=== PATIENT | male | born 1970 | race Caucasian/White ===

== ENCOUNTER 2019-01-26 15:25 | Observation (INO) | payer OTHER, SELFPAY ==
[2019-01-26] VITALS (10 sets, daily range): BP systolic 124–137; BP diastolic 69–82; PULSE 61–108; RESP 16–20; TEMP 36.9–37.3; O2SAT 95–98; BMI 39.9; BMI 38.5
--- NOTE | 2019-01-26 15:28 | EKG12_ITS ---
Test Reason : CP Blood Pressure : / mmHG Vent. Rate : 096 BPM Atrial Rate : 096 BPM P-R Int : 152 ms QRS Dur : 154 ms QT Int : 414 ms P-R-T Axes : 058 220 022 degrees QTc Int : 523 ms Normal sinus rhythm Right bundle branch block Abnormal ECG Confirmed by SAVAGE SORIANO ([id number]), film or videotape editor RICKEY CUMMINGS ([id number]) on 01/28/2019 1:49:14 PM Referred By: CARLTON Confirmed By:SAVAGE SORIANO
--- NOTE | 2019-01-26 15:31 | NURSING ---
NO OLD EKGS
[2019-01-26] MEDS: 0.9% Normal Saline 1,000 ML 150 ML IV (15:32)
[2019-01-26 15:36] LABS: Bedside Glucose 113 mg/dL (70-110)
--- NOTE | 2019-01-26 15:38 | ED.VISSUMM ---
- ER Visit Summary Date of Service: 01/26/19 Chief Complaint: Chest pain, near syncope History of Present Illness: The patient is a 48 M presents to the emergency department with near syncope and chest pain. The patient states over the past 2 or 3 days, he states he just not been feeling himself. He states he is been remaining lightheaded and stressed. He states that today, he was at the grocery store. He states he became acutely diaphoretic, felt like he was going to pass out, and began to have chest pain. His is going to bring him to the hospital, but his symptoms got worse. They went to the fire station. Patient was placed on a monitor. Prehospital EKG was obtained. Patient was given 1 nitro and he was totally pain-free. He states he is never had symptoms like this before. He denies any exertional pain. He denies any fevers or chills. He states he is been under a lot of stress at work recently, but has no history of cardiovascular disease. He is adopted and does not know his family history. He does use chewing tobacco, but does not smoke. Physical Examination: Vital signs reviewed General: Well-nourished, well-developed Head: Normocephalic, atraumatic Eyes: Pupils equal and reactive, extraocular muscles intact Neck, supple, no lymphadenopathy Heart: Regular rate and rhythm Respiratory: No distress, clear bilaterally Abdomen: Soft, nontender, nondistended, no peritoneal signs Back: Nontender Extremities: Nontender, no edema, no cords Skin: Normal color no rash Neuro: Alert and oriented, no focal or lateralizing deficits Test Results: [] Emergency Department Course and Treatment: The patient presents with near syncope and chest pain. EKG was obtained on arrival. He has a right bundle branch block, but was concerned especially in leads V2 and V3. He did not have discordant elevation, but based on his voltage I do not expect to see the depression. His pain was relieved with nitro and Nitropaste was applied. I repeated his EKG and there was no progression. I did actually discussed the patient with Dr. Moser on arrival. He did review the EKG and agreed with the plan. Patient's cardiac enzymes are normal. His pain is controlled. At this time, he will be admitted for cardiac evaluation. Patient is comfortable with this plan of care. Treatment Plan: [] Disposition: Admission Impression: 1. Chest pain with EKG changes This note was generated with [employer] dictation software. It may contain incorrect words, spelling, and punctuation that were not noted in review of the chart prior to signing ED Disposition - Plan for ED Patient: Referrals: Al Wu DO [NON CLINICAL AFFILIATE] -
[2019-01-26] MEDS: Ondansetron 4 MG/2 ML Vial IV (15:39)
[2019-01-26] MEDS: Nitroglycerin SL (ED/IMG/CATH) 0.4 MG TABLET SUBLINGUAL (15:40)
--- NOTE | 2019-01-26 15:40 | RAD_ITS ---
STUDY: X-RAY CHEST REASON FOR EXAM: Male, 48 years old. Discomfort. TECHNIQUE: Single frontal view of the chest. COMPARISON: None. FINDINGS: The lungs are clear and expanded. There is no demonstrated pleural abnormality. Normal size heart. Normal mediastinum and kim. Normal visualized pulmonary arteries. Normal visualized aortic arch and descending thoracic aorta. Normal visualized thoracic spine. Normal visualized ribs, clavicles, and shoulders. There is no demonstrated abnormality of the visualized soft tissue structures of the upper abdomen. RAD/Chest 1 View (Portable) IMPRESSION: No acute cardiopulmonary process. Electronically Signed: Carie Godwin MD at 16:08 EDT Tel , Service support ,
[2019-01-26 15:48] LABS: Absolute Lymphocyte Count 1.43 X10^3/ul (0.83-4.51); Basophil# 0.02 X10^3/uL; Basophil% 0.3 % (0-1); Eosinophils% 1.6 % (0-5); Hematocrit 42.5 % (40-54); Hemoglobin 14.8 g/dl (13.0-16.5); Lymphocyte # 1.43 X10^3/ul (4.0); Lymphocyte % 23.4 % (19-41); Mean Corp Hgb Conc 34.8 g/gl (32-36); Mean Corpuscular Hgb 31.2 pg (27.0-32.0); Mean Corpuscular Volume 89.5 fL (80-94); Mean Platelet Vol. 10.5 fl (6.2-12.0); Monocyte# 0.53 X10^3/uL; Monocyte% 8.7 % (0-10); Neutrophil # 4.03 X10^3/uL (2.7-7.7); Platelet Count 145 K/mm3 (150-450); RBC Distribution Width CV 12.5 % (11.6-14.6); RBC Distribution Width SD 40.3 fl (35.1-43.9); Red Blood Count 4.75 M/mm3 (4.6-6.2); White Blood Count 6.1 K/mm3 (4.4-11.0)
[2019-01-26] MEDS: Nitroglycerin Oint 1 INCH PACKET TRANSDERM. (15:51)
[2019-01-26 15:52] LABS: POSITIVE COUNT NO; POSITIVE DIFFERENTIAL NO; POSITIVE MORPHOLOGY NO
--- NOTE | 2019-01-26 15:58 | EKG12_ITS ---
Test Reason : CP Blood Pressure : / mmHG Vent. Rate : 086 BPM Atrial Rate : 086 BPM P-R Int : 152 ms QRS Dur : 154 ms QT Int : 426 ms P-R-T Axes : 048 238 015 degrees QTc Int : 509 ms Normal sinus rhythm Right bundle branch block Abnormal ECG Confirmed by SAVAGE SORIANO ([id number]), newspaper editor RICKEY CUMMINGS ([id number]) on 01/28/2019 1:49:48 PM Referred By: CARLTON Confirmed By:SAVAGE SORIANO
[2019-01-26 16:43] LABS: Anion Gap 8 (5-15); BUN 18 mg/dL (7-18); BUN/Creat Ratio 12.8 RATIO (10-20); Calcium,Total 8.4 mg/dL (8.5-10.1); Chloride 107 mmol/L (98-107); Creatinine, Serum 1.41 mg/dL (0.70-1.30); EST Glomerular Filtration Rate 57 mL/min (>60); Est Glom Filt Rate - Afr Amer 69 mL/min (>60); Estimated Creatinine Clearance 69.56 ml/min; Glucose 108 mg/dL (74-106); Magnesium 1.9 mg/dL (1.6-2.6); Potassium 4.4 mmol/L (3.5-5.1); Sodium Level 139 mmol/L (136-145)
--- NOTE | 2019-01-26 16:50 | NURSING ---
MARIEU OBS IVANA RIVERA
--- NOTE | 2019-01-26 17:00 | PCM.HP.STD ---
Problem List (1) Chest pain Status: Acute History of Present Illness Date of Admission: 01/26/19 Chief Complaint: Chest pain. The patient is a 48 year old M who presents emergency room due to chest pain. He reports he has had intermittent chest discomfort for the past 2 weeks, not associated with exertion. He describes a pressure sensation, sometimes radiating to back. Denies radiation to arm or jaw. Complains of intermittent fever. Denies recent illness. He reports chest discomfort feels worse with leaning forward. He denies shortness of breath, palpitations. He states overall he has not felt well for the last 2 weeks. His drove him to the hospital and patient reports he had her chain puller on the way here because he thought it was the end. He states he felt like his heart stopped working. He denies any prior cardiac history. He denies any prior stress test. He does not take any daily medications. He reports significant work stress recently and feels his increased stress may be contributing to his presenting symptoms. Past Medical History Allergies No Known Allergies Allergy (Verified 01/26/19 15:30) Home Medications: Ambulatory Orders Medication Instructions Recorded NK 01/26/19 Surgical History: - - Left hip replacement, vasectomy, right knee , gum graft Psychiatric History: No pertinent psych hx Lives: Spouse/ Significant Other Smoking Status: Never smoker Tobacco Use: Chew Alcohol: Occasional Drugs: None - *Family History Maternal History Items: - - Adopted, does not know maternal medical history. Paternal History Items: - - Adopted, does not known paternal medical history. Review of Systems Constitutional: Reports: Fever. Denies: Chills, Weight Change HEENT: Denies: Head Aches, Sinus Congestion, Sinus Drainage Cardiovascular: Reports: Chest Pain, Light Headedness. Denies: Palpitations, Syncope Respiratory: Denies: Cough, Shortness of breath at rest, Sputum production Gastrointestinal: Denies: Abdominal Pain, Nausea, Vomiting Genitourinary: Denies: Dysuria Musculoskeletal: Denies: Joint Pain, Joint Tenderness Skin: Denies: Rash, Wounds Neurological: Denies: Numbness, Tingling, Focal weakness Psychiatric: Denies: Anxiety, Depression, Homicidal Ideations, Suicidal Ideations Hematologic/ Lymphatic: Denies: Easy Bruising, Easy Bleeding VTE Information - Inpt Only VTE Present on Admission: No VTE Mechan Device Prophylaxis: None VTE Pharm Prophylaxis ordered?: Yes Patient Problems: Active and Suspected Problems Chest pain (Acute) - Physical Exam General: Alert, Oriented x3, Cooperative HEENT: Atraumatic, PERRLA, EOMI, Normocephalic Neck: Supple, No JVD, Negative Carotid Bruits Lungs: Clear to auscultation, Normal air movement Cardiovascular: Regular Rhythm, Normal S1, Normal S2, No murmurs, Tachycardic Abdomen: Bowel Sounds Present, Soft, Non Tender, Non-Distended Extremities: No clubbing, No cyanosis, No edema, Capillary Refill Less than 3 Seconds Skin: No rashes, No breakdown Musculoskeletal: No Tenderness to Palpation of Joints or Extremities Neurological: Cranial nerves II-XII grossly intact, Neuro grossly intact Psych/Mental Status: Normal Affect, Appropriate Vital Signs Temp Pulse Resp BP Pulse Ox 99.2 F H 108 H 20 H 129/80 H 95 01/26/19 15:26 01/26/19 15:51 01/26/19 15:26 01/26/19 15:51 01/26/19 15:31 Oxygen Delivery Method Room Air Weight: 294 lb 5.074 oz Body Mass Index (BMI) 39.9 Finger Stick Blood Glucose 113 Laboratory Tests Past 24 Hrs 01/26/19 01/26/19 15:35 15:35 WBC 6.1 RBC 4.75 Hgb 14.8 Hct 42.5 MCV 89.5 MCH 31.2 MCHC 34.8 RDW 12.5 RDW Differential 40.3 Plt Count 145 L MPV 10.5 Immature Gran % (Auto) 0.000 Neut % (Auto) 66.0 Lymph % (Auto) 23.4 [place] % (Auto) 8.7 Eos % (Auto) 1.6 Baso % (Auto) 0.3 Absolute Neuts (auto) 4.0 Absolute Lymphs (auto) 1.43 Total Counted Not Reportable Sodium 139 Potassium 4.4 Chloride 107 Carbon Dioxide 24.0 Anion Gap 8 BUN 18 Creatinine 1.41 H Estim Creat Clear Calc 69.56 Est GFR (MDRD) Af Amer 69 Est GFR (MDRD) Non-Af 57 L BUN/Creatinine Ratio 12.8 Glucose 108 H Calcium 8.4 L Magnesium 1.9 Troponin I < 0.015 POC Glucose 01/26/19 15:30 POC Glucose 113 H Assessment/Plan All Active Problems Chest pain (Acute) 1. Chest pain, RBBB-no prior EKG for comparison. No ST-T changes. Chest x-ray without acute process. Troponin negative x1. Trend enzymes. Repeat EKG in a.m. Plan for stress echo on Monday. Check ESR. 2. Elevated creatinine-unknown baseline. Repeat in a.m. 3. Lumbar spine osteoarthritis- PRN tylenol regimen. 4. Chewing tobacco use- advised cessation. DVT prophylaxis-Lovenox subcu This patient was seen by GEOVANY Guy under the supervision of Dr. Gonsales.
--- NOTE | 2019-01-26 17:52 | STEWCON_ITS ---
Reason For Study: Chest Pain Stress Results Protocol: Allan Protocol Maximum Predicted HR: 171 bpm Target HR: 145 bpm % Maximum Predicted HR: 95 % Heart Stage Duration Rate BP Comment (mm:ss) (bpm) 10 Lower Chest Tightness; 3 ML Diluted Definity Baseline 54 118/82Given Allan Protocol Stage I 3:00 95 124/701/10 Lower Chest Tightness Allan Protocol Stage II 3:00 121 140/721/10 Lower Chest Tightness Allan Protocol Stage III 3:00 151 154/721/10 Lower Chest Tightness; Mild Dyspnea Allan Protocol Stage IV 0:32 162 / 1/10 Lower Chest Tightness; Moderate Dyspnea Recovery 90 112/801/10 Lower Chest Tightness Stress Duration: 9:32 mm:ss Maximum Stress HR: 162 bpm METS: 11 Baseline Echocardiogram Findings The estimated ejection fraction is 65 %. Stress Echo Wall motion Data Resting WM Intermediate WM Stress WM Resting Wall Motion Wall Motion Stress No regional wall motion No regional wall motion abnormalities noted. abnormalities noted. EKG Data The baseline ECG displays normal sinus rhythm. The patient exercised according to the regular Allan protocol for a total duration of 9:32. The maximum heart rate attained was 171 beats per minute. This was 100% of maximum predicted heart rate. The patient exercised into stage 4 of the Allan protocol. During stress, there were no ST or T wave changes noted to suggest ischemia. No clinical angina was noted. No arrhythmias noted. Interpretation Summary The estimated ejection fraction is 65 %. Normal, adequate, treadmill echocardiogram. Negative for ischemia by EKG and echocardiographic criteria. No anginal symptoms noted. No arrhythmias noted. Appropriate blood pressure response to exercise. Average exercise capacity for age. Final LVEF is 75%. Test terminated due to fatigue. Decreased sensitivity due to poor echo windows requiring Definity enhancement agent. No complications. The study was technically difficult. Contrast injection was performed. Ordering Physician: Nirav Gonsales Referring Physician: Tarik Moser Performed By: Nayeli Gallagher RDCS, RVT
[2019-01-26 18:06] LABS: Erythrocyte Sedimentation Rate 3 mm/hr (0-15)
--- NOTE | 2019-01-26 23:57 | EKG12_ITS ---
Test Reason : AM EKG Blood Pressure : / mmHG Vent. Rate : 046 BPM Atrial Rate : 046 BPM P-R Int : 168 ms QRS Dur : 162 ms QT Int : 500 ms P-R-T Axes : 065 -28 033 degrees QTc Int : 437 ms Sinus bradycardia Right bundle branch block Abnormal ECG Confirmed by IVETTE GAVIN, GURDEEP ([id number]), photographic editor RICKEY CUMMINGS ([id number]) on 01/30/2019 1:56:05 PM Referred By: SUZY Confirmed By:GURDEEP STEELE MD
[2019-01-27] VITALS (10 sets, daily range): BP systolic 113–125; BP diastolic 57–76; PULSE 50–67; RESP 16–18; TEMP 36.4–36.6; O2SAT 96–97
[2019-01-27 05:54] LABS: Hematocrit 40.6 % (40-54); Hemoglobin 14.1 g/dl (13.0-16.5); Mean Corp Hgb Conc 34.7 g/gl (32-36); Mean Corpuscular Hgb 30.9 pg (27.0-32.0); Mean Corpuscular Volume 88.8 fL (80-94); Mean Platelet Vol. 11.3 fl (6.2-12.0); Platelet Count 154 K/mm3 (150-450); RBC Distribution Width CV 12.3 % (11.6-14.6); RBC Distribution Width SD 39.7 fl (35.1-43.9); Red Blood Count 4.57 M/mm3 (4.6-6.2); White Blood Count 5.3 K/mm3 (4.4-11.0)
[2019-01-27 05:58] LABS: Scan Indicated on CBC? Y/N NO
[2019-01-27 06:02] LABS: Cholesterol 173 mg/dL (200); High Density Lipoprotein 38 mg/dL; Triglycerides 123 mg/dL; Very Low Density Lipoprotein 25 mg/dL (5-40)
[2019-01-27 07:35] LABS: Anion Gap 7 (5-15); BUN 16 mg/dL (7-18); Calcium,Total 8.2 mg/dL (8.5-10.1); Chloride 109 mmol/L (98-107); Creatinine, Serum 1.33 mg/dL (0.70-1.30); EST Glomerular Filtration Rate 61 mL/min (>60); Est Glom Filt Rate - Afr Amer 73 mL/min (>60); Estimated Creatinine Clearance 73.74 ml/min; Glucose 92 mg/dL (74-106); Sodium Level 141 mmol/L (136-145)
--- NOTE | 2019-01-27 08:18 | EKG12_ITS ---
Test Reason : CP Blood Pressure : / mmHG Vent. Rate : 050 BPM Atrial Rate : 050 BPM P-R Int : 162 ms QRS Dur : 158 ms QT Int : 470 ms P-R-T Axes : 060 -28 019 degrees QTc Int : 428 ms Sinus bradycardia Right bundle branch block Abnormal ECG Confirmed by IVETTE GAVIN, GURDEEP ([id number]), desk editor RICKEY CUMMINGS ([id number]) on 01/30/2019 1:58:14 PM Referred By: CHRISTIE Confirmed By:GURDEEP STEELE MD
--- NOTE | 2019-01-27 10:40 | PN_ITS ---
<Savannah Richardson - Last Filed: 01/27/19 10:40> Patient Problems: Active and Suspected Problems Chest pain (Acute) Subjective: Patient seen and examined. Denies further chest pain overnight. No current complaints, concerns. - Physical Exam General: Alert, Oriented x3, Cooperative HEENT: Atraumatic, PERRLA, EOMI, Normocephalic Neck: Supple, No JVD, Negative Carotid Bruits Lungs: Clear to auscultation, Normal air movement Cardiovascular: Regular rate, Regular Rhythm, Normal S1, Normal S2, No murmurs Abdomen: Bowel Sounds Present, Soft, Non Tender, Non-Distended Extremities: No clubbing, No cyanosis, No edema, Capillary Refill Less than 3 Seconds Skin: No rashes, No breakdown Musculoskeletal: No Tenderness to Palpation of Joints or Extremities Neurological: Cranial nerves II-XII grossly intact, Neuro grossly intact Psych/Mental Status: Normal Affect, Appropriate Vital Signs Temp Pulse Resp BP Pulse Ox 97.8 F 60 17 121/76 H 97 01/27/19 09:43 01/27/19 09:43 01/27/19 09:43 01/27/19 09:43 01/27/19 09:43 Oxygen Flow Rate (L/min) 2 Oxygen Delivery Method Room Air Weight: 283 lb 11.759 oz Body Mass Index (BMI) 38.5 Finger Stick Blood Glucose 113 Intake and Output for Last 24 Hours 01/25/19 01/26/19 01/27/19 23:59 23:59 23:59 Intake Total 480 / 480 360 / 360 Balance 480 / 480 360 / 360 Laboratory Tests Past 24 Hrs 01/26/19 01/26/19 01/26/19 15:35 15:35 15:35 WBC 6.1 RBC 4.75 Hgb 14.8 Hct 42.5 MCV 89.5 MCH 31.2 MCHC 34.8 RDW 12.5 RDW Differential 40.3 Plt Count 145 L MPV 10.5 Immature Gran % (Auto) 0.000 Neut % (Auto) 66.0 Lymph % (Auto) 23.4 [place] % (Auto) 8.7 Eos % (Auto) 1.6 Baso % (Auto) 0.3 Absolute Neuts (auto) 4.0 Absolute Lymphs (auto) 1.43 Total Counted Not Reportable ESR 3 Sodium 139 Potassium 4.4 Chloride 107 Carbon Dioxide 24.0 Anion Gap 8 BUN 18 Creatinine 1.41 H Estim Creat Clear Calc 69.56 Est GFR (MDRD) Af Amer 69 Est GFR (MDRD) Non-Af 57 L BUN/Creatinine Ratio 12.8 Glucose 108 H Calcium 8.4 L Magnesium 1.9 Troponin I < 0.015 Triglycerides Cholesterol LDL Cholesterol VLDL Cholesterol HDL Cholesterol 01/26/19 01/26/19 01/26/19 18:30 18:35 22:30 WBC RBC Hgb Hct MCV MCH MCHC RDW RDW Differential Plt Count MPV Immature Gran % (Auto) Neut % (Auto) Lymph % (Auto) [place] % (Auto) Eos % (Auto) Baso % (Auto) Absolute Neuts (auto) Absolute Lymphs (auto) Total Counted ESR Sodium Potassium Chloride Carbon Dioxide Anion Gap BUN Creatinine Estim Creat Clear Calc Est GFR (MDRD) Af Amer Est GFR (MDRD) Non-Af BUN/Creatinine Ratio Glucose Calcium Magnesium Troponin I < 0.015 < 0.015 < 0.015 Triglycerides Cholesterol LDL Cholesterol VLDL Cholesterol HDL Cholesterol 01/27/19 01/27/19 01/27/19 05:04 05:04 05:04 WBC 5.3 RBC 4.57 L Hgb 14.1 Hct 40.6 MCV 88.8 MCH 30.9 MCHC 34.7 RDW 12.3 RDW Differential 39.7 Plt Count 154 MPV 11.3 Immature Gran % (Auto) Neut % (Auto) Lymph % (Auto) [place] % (Auto) Eos % (Auto) Baso % (Auto) Absolute Neuts (auto) Absolute Lymphs (auto) Total Counted ESR Sodium 141 Potassium 4.0 Chloride 109 H Carbon Dioxide 25.0 Anion Gap 7 BUN 16 Creatinine 1.33 H Estim Creat Clear Calc 73.74 Est GFR (MDRD) Af Amer 73 Est GFR (MDRD) Non-Af 61 BUN/Creatinine Ratio 12.0 Glucose 92 Calcium 8.2 L Magnesium Troponin I Triglycerides 123 Cholesterol 173 LDL Cholesterol 110 VLDL Cholesterol 25 HDL Cholesterol 38 L POC Glucose 01/26/19 15:30 POC Glucose 113 H Medical Necessity - Tobacco Use Smoking Status: Never smoker Tobacco Use: Chew Assessment/Plan All Active Problems Chest pain (Acute) 1. Chest pain, RBBB-no prior EKG for comparison. No ST-T changes. Chest x-ray without acute process. Troponin negative x3. ESR normal. Stress echo ordered for a.m. 2. Elevated creatinine-unknown baseline. Improved with IV fluids given in ER. Trend BMP. 3. Lumbar spine osteoarthritis- PRN tylenol regimen. 4. Chewing tobacco use- advised cessation. DVT prophylaxis-Lovenox subcu This patient was seen by GEOVANY Guy under the supervision of Dr. Gallo. <Chaim Gallo - Last Filed: 01/27/19 12:35> - Physical Exam Vital Signs Temp Pulse Resp BP Pulse Ox 97.8 F 64 17 121/76 H 97 01/27/19 09:43 01/27/19 11:53 01/27/19 09:43 01/27/19 09:43 01/27/19 09:43 Oxygen Flow Rate (L/min) 2 Oxygen Delivery Method Room Air Weight: 128.7 kg Body Mass Index (BMI) 38.5 Finger Stick Blood Glucose 113 Intake and Output for Last 24 Hours 01/25/19 01/26/19 01/27/19 23:59 23:59 23:59 Intake Total 480 / 480 1010 / 1010 Balance 480 / 480 1010 / 1010 Laboratory Tests Past 24 Hrs 01/26/19 01/26/19 01/26/19 15:35 15:35 15:35 WBC 6.1 RBC 4.75 Hgb 14.8 Hct 42.5 MCV 89.5 MCH 31.2 MCHC 34.8 RDW 12.5 RDW Differential 40.3 Plt Count 145 L MPV 10.5 Immature Gran % (Auto) 0.000 Neut % (Auto) 66.0 Lymph % (Auto) 23.4 [place] % (Auto) 8.7 Eos % (Auto) 1.6 Baso % (Auto) 0.3 Absolute Neuts (auto) 4.0 Absolute Lymphs (auto) 1.43 Total Counted Not Reportable ESR 3 Sodium 139 Potassium 4.4 Chloride 107 Carbon Dioxide 24.0 Anion Gap 8 BUN 18 Creatinine 1.41 H Estim Creat Clear Calc 69.56 Est GFR (MDRD) Af Amer 69 Est GFR (MDRD) Non-Af 57 L BUN/Creatinine Ratio 12.8 Glucose 108 H Calcium 8.4 L Magnesium 1.9 Troponin I < 0.015 Triglycerides Cholesterol LDL Cholesterol VLDL Cholesterol HDL Cholesterol 05/08/0601/26/19 01/26/19 18:30 18:35 22:30 WBC RBC Hgb Hct MCV MCH MCHC RDW RDW Differential Plt Count MPV Immature Gran % (Auto) Neut % (Auto) Lymph % (Auto) [place] % (Auto) Eos % (Auto) Baso % (Auto) Absolute Neuts (auto) Absolute Lymphs (auto) Total Counted ESR Sodium Potassium Chloride Carbon Dioxide Anion Gap BUN Creatinine Estim Creat Clear Calc Est GFR (MDRD) Af Amer Est GFR (MDRD) Non-Af BUN/Creatinine Ratio Glucose Calcium Magnesium Troponin I < 0.015 < 0.015 < 0.015 Triglycerides Cholesterol LDL Cholesterol VLDL Cholesterol HDL Cholesterol 01/27/19 01/27/19 01/27/19 05:04 05:04 05:04 WBC 5.3 RBC 4.57 L Hgb 14.1 Hct 40.6 MCV 88.8 MCH 30.9 MCHC 34.7 RDW 12.3 RDW Differential 39.7 Plt Count 154 MPV 11.3 Immature Gran % (Auto) Neut % (Auto) Lymph % (Auto) [place] % (Auto) Eos % (Auto) Baso % (Auto) Absolute Neuts (auto) Absolute Lymphs (auto) Total Counted ESR Sodium 141 Potassium 4.0 Chloride 109 H Carbon Dioxide 25.0 Anion Gap 7 BUN 16 Creatinine 1.33 H Estim Creat Clear Calc 73.74 Est GFR (MDRD) Af Amer 73 Est GFR (MDRD) Non-Af 61 BUN/Creatinine Ratio 12.0 Glucose 92 Calcium 8.2 L Magnesium Troponin I Triglycerides 123 Cholesterol 173 LDL Cholesterol 110 VLDL Cholesterol 25 HDL Cholesterol 38 L POC Glucose 01/26/19 15:30 POC Glucose 113 H Assessment/Plan This patient was seen in conjunction with GEOVANY Guy . I have independently interviewed and examined the patient and reviewed pertinent hist orical, laboratory, and other data. Please refer to GEOVANY Guy note for details of this patient's presentation, findings, and recommendations. I have reviewed GEOVANY Guy note and concur with documented findings. In brief, patient is a 48-year-old gentleman who presented with chest pain found to have right bundle branch block on EKG Physical Examination: GENERAL: cooperative HEENT: Atraumatic; EYES; Anicteric, NECK; supple, normal thyroid, . RESPIRATORY: Diminished to auscultation bilaterally, CARDIOVASCULAR: Regular S1 S2, GI: soft, non-tender, normoactive bowel sounds, SKIN: No Rash PSYCH; Normal affect Assessment: 1. Chest pain; stress in a.m. 2. Renal failure (acute versus chronic) baseline creatinine unknown we will continue to monitor lites 3. Obesity with BMI of 38.5 4. Dependence (chews tobacco) 5. Osteoarthritis involving the lumbar spine Recommendations: 1. I have discussed the results of my overview and impressions with the patient 2. Options for management were reviewed Code Visit OBSV E&M: 28305 Observ/hosp same date L3
--- NOTE | 2019-01-27 10:57 | PCM.CONS.C ---
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 The patient does chew tobacco. He has had no known cardiac or cerebrovascular issues. He has never had a stress test or a catheterization. Patient has been under a significant amount of stress at work and is noted new onset substernal chest pressure which is dull and constant which lasts several hours and has been going on for several days. This occurred approximately 1 week ago. Patient did not seek out medical attention. Patient was walking in the grocery store with his yesterday and he developed severe feeling of doom, substernal chest heaviness, as well as dyspnea and diaphoresis. Patient asked his to take him to the hospital, but prison there his symptoms worsened and was diverted to the local fire station. An EKG was performed but it had significant artifact and he was brought to [facility] ER. An EKG in the emergency room demonstrated normal sinus rhythm with right bundle branch block and anteroseptal ST segment depression out of proportion to normal right bundle branch block pattern. Patient was given a sublingual nitroglycerin in the squad as well as in the ER and his symptoms abated. He has had no symptoms overnight although he has constant dull chest heaviness still going on today. Overnight his troponins have been negative x3, and his telemetry showed normal sinus rhythm. On further history he denies any exertional chest pain symptoms and exercises regularly without any difficulty. He is noted no worsening exercise capacity although he has been under a lot of psychosocial stress at work. He denies any [id number], herbal, medications he has occasional alcohol use, and no illicit drug use. [] Past Medical History Allergies/Adverse Reactions: Allergies No Known Allergies Allergy (Verified 01/26/19 15:30) Home Medications: Ambulatory Orders Medication Instructions Recorded NK 01/26/19 Surgical History: - - Left hip replacement, vasectomy, right knee , gum graft Psychiatric History: No pertinent psych hx - *Family History Maternal History Items: - - Adopted, does not know maternal medical history. Paternal History Items: - - Adopted, does not known paternal medical history. Lives: Spouse/ Significant Other Smoking Status: Never smoker Tobacco Use: Chew Alcohol: Occasional Drugs: None Review of Systems - Review of Systems General: Denies: Fever, Night Sweats, Fatigue Cardiovascular: Reports: Chest Discomfort, Chest Discomfort at Rest, Chest Heaviness, Shortness of Breath. Denies: Orthopnea, PND, Peripheral Edema, Palpitations, Lightheadedness, Dizziness, Near Syncope, Syncope Respiratory: Denies: Cough, Sputum Production, Hemoptysis Gastrointestinal: Denies: Hematemesis, Hematochezia, Melena Genitourinary: Denies: Dysuria, Hematuria Skin: Denies: Rash Subjectve: Patient sitting in a chair, no acute distress. Objective: Vital Signs Temp Pulse Resp BP Pulse Ox 97.8 F 60 17 121/76 H 97 01/27/19 09:43 01/27/19 09:43 01/27/19 09:43 01/27/19 09:43 01/27/19 09:43 Oxygen Flow Rate (L/min) 2 Oxygen Delivery Method Room Air Weight: 283 lb 11.759 oz Body Mass Index (BMI) 38.5 Finger Stick Blood Glucose 113 Intake and Output for Last 24 Hours 01/25/19 01/26/19 01/27/19 23:59 23:59 23:59 Intake Total 480 / 480 360 / 360 Balance 480 / 480 360 / 360 General: Awake, Alert, Oriented x 3 HEENT: PERRL, EOMI, Sclera Non Icteric Neck: Supple, Good ROM, No Lymph Node Enlargement Lungs: Clear to auscultation Cardiovascular: Regular Rhythm, Normal S1, Normal S2, No Murmurs, No Rubs, No Gallops Vascular: No Carotid Bruits, Normal Femoral Pulses, Normal Radial Pulses, Normal Dorsalis Pedal Pulse, Normal Posterior Tibial Pulses Abdomen: Bowel Sounds Present, Soft, Non Tender, No HSM, No Organomegaly Extremities: No Cyanosis, No Clubbing, No edema Neurological: No Focal Motor or Sensory Deficit 01/26/19 15:35: WBC 6.1, RBC 4.75, Hgb 14.8, Hct 42.5, MCV 89.5, MCH 31.2, MCHC 34.8, RDW 12.5, RDW Differential 40.3, Plt Count 145 L, MPV 10.5, Immature Gran % (Auto) 0.000, Neut % (Auto) 66.0, Lymph % (Auto) 23.4, Hamilton % (Auto) 8.7, Eos % (Auto) 1.6, Baso % (Auto) 0.3, Absolute Neuts (auto) 4.0, Total Counted Not Reportable 01/26/19 15:35: Sodium 139, Potassium 4.4, Chloride 107, Carbon Dioxide 24.0, Anion Gap 8, BUN 18, Creatinine 1.41 H, Est GFR (MDRD) Af Amer 69, Est GFR (MDRD) Non-Af 57 L, BUN/Creatinine Ratio 12.8, Glucose 108 H, Calcium 8.4 L, Magnesium 1.9, Troponin I < 0.015 01/26/19 18:30: Troponin I < 0.015 01/26/19 18:35: Troponin I < 0.015 01/26/19 22:30: Troponin I < 0.015 01/27/19 05:04: Triglycerides 123, Cholesterol 173, LDL Cholesterol 110, VLDL Cholesterol 25, HDL Cholesterol 38 L 01/27/19 05:04: WBC 5.3, RBC 4.57 L, Hgb 14.1, Hct 40.6, MCV 88.8, MCH 30.9, MCHC 34.7, RDW 12.3, RDW Differential 39.7, Plt Count 154, MPV 11.3 01/27/19 05:04: Sodium 141, Potassium 4.0, Chloride 109 H, Carbon Dioxide 25.0, Anion Gap 7, BUN 16, Creatinine 1.33 H, Est GFR (MDRD) Af Amer 73, Est GFR (MDRD) Non-Af 61, BUN/Creatinine Ratio 12.0, Glucose 92, Calcium 8.2 L Rhythm: EKG: ECHO: Stress Test: Cardiac Cath: PCI: CT Surgery: Holter monitor: EPS: PPM: CXR: Chest CT Scan: Assessment/Plan 1. New onset chest pain: Patient has several risk factors for coronary occlusive disease including his age, borderline cholesterol, and obesity. We are at a disadvantage as he is adopted and has no knowledge of his family history of coronary disease. Patient's troponins are negative, and he comes with a baseline right bundle branch block which in and of itself does not suggest or confirm coronary occlusive disease but is somewhat concerning given his young age. I recommended the patient undergo a 2D echo with Doppler to define his LV function, pulmonary pressures and valvular status. Assuming this is normal, I would then recommend a treadmill echocardiogram to evaluate for possible coronary ischemia. If either 1 of these are grossly abnormal, the patient may require diagnostic coronary angiogram. In addition I would recommend baby aspirin 81 mg p.o. daily. Also recommend starting PPI therapy in the event that the patient may have gastritis or peptic ulcer disease that may be contributing to his overall symptom presentation. It is unlikely the patient may have a pulmonary embolism, given the fact that his symptoms have been going on for well over a week, he has no desaturation, no sinus tachycardia, and does not require supplemental oxygenation however it is still within the differential. 2. Hyperlipidemia: Given we have no idea of his family history of premature coronary disease I would recommend gentle LDL reduction by starting him on Zocor 20 mg p.o. nightly and repeating lipid profile in 6 weeks time. 3. Obesity: The patient has body habitus consistent with possibly undiagnosed obstructive sleep apnea which may be contributing to his overall fatigue and stress. He may require a an outpatient sleep study after his cardiac work-up is been completed. 4. Thank you very much for the opportunity to participate in the cardiac care of your patient. Consultation time took place between 9 AM and 9:30 AM. Code Visit Inpatient E&M: 11748 Init Hosp L2
--- NOTE | 2019-01-27 11:05 | ECHOCS_ITS ---
Reason For Study: Chest Pain Procedure This was a 2D Doppler, Color Flow transthoracic echocardiogram. The study was technically difficult. Contrast injection was performed. Exam performed in department. Left Ventricle Normal size and thickness. The estimated ejection fraction is 65 %. Normal diastology for age. No regional wall motion abnormalities noted. Right Ventricle Normal size and thickness. Normal systolic function. Atria Normal left atrium. Normal right atrium. Normal atrial septum. Mitral Valve The mitral valve is structurally normal. No prolapse or stenosis seen. Mild (1+) mitral valve insufficiency. Tricuspid Valve Normal tricuspid valve. Mild (1+) tricuspid valve insufficiency. Right ventricular systolic pressure estimated to be 35 mmHg. Aortic Valve Normal aortic valve. Trisinus/trileaflet aortic valve. Pulmonic Valve Normal pulmonic valve. Trivial pulmonic valve insufficiency. Great Vessels Normal aortic root. Normal arch. Normal inferior vena cava. Inferior vena cava collapse with sniff. Pericardium/Pleural No pericardial effusion. Medication [id number] given slow IV push to enhance endocardial definition. MMode/2D Measurements & Calculations LVIDd: 5.6 cm IVSd: 0.95 cm Ao root diam: 3.6 cm LVIDs: 3.5 cm LVPWd: 1.0 cm RVDd: 4.3 cm FS: 37.4 % LAV(MOD-bp): 43.8 ml LVAd ap4: 36.8 cm2 SV(MOD-sp4): 82.7 ml LAV(MOD-bp) Indexed: 17.7 ml/m2 EDV(MOD-sp4): 128.9 ml LAV(MOD-sp2): 39.6 ml EDV(sp4-el): 134.0 ml LAV(MOD-sp4): 45.4 ml LVAs ap4: 20.5 cm2 ESV(MOD-sp4): 46.2 ml ESV(sp4-el): 46.4 ml EF(MOD-sp4): 64.2 % EF(sp4-el): 65.4 % SV(sp4-el): 87.6 ml LA A4 area: 17.6 cm2 LA dimension(2D): 4.0 cm RA A4 area: 16.1 cm2 Doppler Measurements & Calculations MV E max jay jay: 74.7 cm/sec Lat Peak E' Jay Jay: 13.4 cm/sec Med Peak E' Jay Jay: 8.3 cm/sec MV A max jay jay: 56.2 cm/sec E/E' lat: 5.6 E/E' med: 9.0 MV E/A: 1.3 Ao V2 max: 140.2 cm/sec LV V1 max: 134.4 cm/sec PA V2 max: 97.3 cm/sec Ao max P.9 mmHg LV V1 max P.2 mmHg Ao V2 mean: 94.5 cm/sec Ao mean P.0 mmHg Ao V2 VTI: 31.8 cm TR max jay jay: 274.9 cm/sec TR max P.2 mmHg Interpretation Summary The estimated ejection fraction is 65 %. Normal diastology for age. Mild (1+) mitral valve insufficiency. Mild (1+) tricuspid valve insufficiency. Right ventricular systolic pressure estimated to be 35 mmHg. There is no comparison study available. The study was technically difficult. Contrast injection was performed. Ordering Physician: Tarik Moser Referring Physician: Jamie Jean Performed By: Nayeli Gallagher, SHAWN, RVT
[2019-01-27] MEDS: Enoxaparin 30 MG/0.3 ML Syringe SC (11:06)
[2019-01-28 01:22] VITALS: PULSE 39
[2019-01-28 03:00] VITALS: PULSE 52
[2019-01-28 04:16] VITALS: BP 112/79; PULSE 49; RESP 18; TEMP 36.6; O2SAT 95
[2019-01-28 05:25] VITALS: BP 115/79; PULSE 48; RESP 18; TEMP 36.6; O2SAT 94
[2019-01-28] MEDS: Aspirin 81 MG TAB.CHEW PO (05:27)
[2019-01-28] MEDS: 0.9% NaCl Peripheral Flush Adult/Peds IV (05:27)
[2019-01-28 05:28] LABS: Hematocrit 42.1 % (40-54); Hemoglobin 14.6 g/dl (13.0-16.5); Mean Corp Hgb Conc 34.7 g/gl (32-36); Mean Corpuscular Hgb 31.2 pg (27.0-32.0); Mean Platelet Vol. 11.1 fl (6.2-12.0); Platelet Count 139 K/mm3 (150-450); RBC Distribution Width CV 12.5 % (11.6-14.6); RBC Distribution Width SD 40.8 fl (35.1-43.9); Red Blood Count 4.68 M/mm3 (4.6-6.2); White Blood Count 3.8 K/mm3 (4.4-11.0)
[2019-01-28 05:34] LABS: Scan Indicated on CBC? Y/N NO
[2019-01-28 05:35] LABS: Partial Thromboplast Time 28.5 Seconds (24.1-36.2); Prothrombin Time (Protime)PT. 13.3 SECONDS (11.7-14.9)
[2019-01-28 05:46] LABS: Anion Gap 6 (5-15); BUN 14 mg/dL (7-18); BUN/Creat Ratio 11.6 RATIO (10-20); Calcium,Total 8.5 mg/dL (8.5-10.1); Chloride 109 mmol/L (98-107); Creatinine, Serum 1.21 mg/dL (0.70-1.30); EST Glomerular Filtration Rate 68 mL/min (>60); Est Glom Filt Rate - Afr Amer 82 mL/min (>60); Estimated Creatinine Clearance 81.06 ml/min; Glucose 96 mg/dL (74-106); Potassium 4.3 mmol/L (3.5-5.1); Sodium Level 143 mmol/L (136-145)
--- NOTE | 2019-01-28 05:55 | EKG12_ITS ---
Test Reason : CP ADMISSION Blood Pressure : / mmHG Vent. Rate : 061 BPM Atrial Rate : 061 BPM P-R Int : 156 ms QRS Dur : 154 ms QT Int : 456 ms P-R-T Axes : 057 -82 025 degrees QTc Int : 459 ms Normal sinus rhythm Right bundle branch block Left anterior fascicular block Bifascicular block Abnormal ECG Confirmed by IVETTE GAVIN, GURDEEP ([id number]), video effects editor RICKEY CUMMINGS ([id number]) on 01/30/2019 1:59:02 PM Referred By: NICOLE Confirmed By:GURDEEP STEELE MD
[2019-01-28 07:06] VITALS: PULSE 51
[2019-01-28 09:53] VITALS: BP 139/86; PULSE 75; RESP 17; TEMP 36.8; O2SAT 95
[2019-01-28] MEDS: Pantoprazole Sodium 20 MG Tablet PO (10:01)
[2019-01-28 10:16] LABS: D-Dimer Quantitative (DVT/PE) < 0.27 FEU/ug/m (0.27-0.49)
--- NOTE | 2019-01-28 10:30 | PCM.WORK.EX ---
Work/School Excuse Work/School Excuse for:: Patient Please excuse this person from:: Work From: 01/26/19 through: 02/04/19
--- NOTE | 2019-01-28 10:30 | PCM.DC ---
- Discharge Diagnoses Current Active Problems: Current Active and Chronic Problems Chest pain (Acute) You will use the following diet at home:: No restrictions Discharge Activity: Return to Normal Activity Call your doctor if you observe: Shortness of breath, Dizziness, Fainting spells, Chest pain Additional Instructions: Recommend sleep study as outpatient. Allergies/Adverse Reactions: Allergies No Known Allergies Allergy (Verified 01/26/19 15:30) Medications to take at Discharge Simvastatin [Zocor] 20 mg PO QHS #30 tablet 01/28/19 The following prescriptions were given: Simvastatin [Zocor] 20 mg PO QHS #30 tablet Test Results: Test results from this visit will be discussed in further detail at your follow-up appointment, if applicable. Please Follow Up With: Bismark Jean MD When: Within 1 week, may see INTERPRETER/PA Proposed Discharge Date: 01/28/19
--- NOTE | 2019-01-28 10:33 | DCINST_ITS ---
- Discharge Diagnoses Current Active Problems: Current Active and Chronic Problems Chest pain (Acute) You will use the following diet at home:: No restrictions Discharge Activity: Return to Normal Activity Call your doctor if you observe: Shortness of breath, Dizziness, Fainting spells, Chest pain Additional Instructions: Recommend sleep study as outpatient. Allergies/Adverse Reactions: Allergies No Known Allergies Allergy (Verified 01/26/19 15:30) Medications to take at Discharge Simvastatin [Zocor] 20 mg PO QHS #30 tablet 01/28/19 The following prescriptions were given: Simvastatin [Zocor] 20 mg PO QHS #30 tablet Test Results: Test results from this visit will be discussed in further detail at your follow- up appointment, if applicable. Please Follow Up With: Bismark Jean MD When: Within 1 week, may see PRINTED CIRCUIT BOARDS PINNER/PA Proposed Discharge Date: 01/28/19
--- NOTE | 2019-01-28 10:47 | DS.PCM_ITS ---
<Savannah Richardson - Last Filed: 01/28/19 10:48> Discharge Date and Diagnosis Date of Admission: 01/26/19 Date of Discharge: 01/28/19 - Primary Discharge Diagnosis Active and Suspected Problems 1. Chest pain- ACS ruled out. Suspected anxiety/stress related. 2. Right Bundle Branch Block 3. Elevated creatinine, no KATE 4. Lumbar spine osteoarthritis 5. Chewing tobacco use 6. Hyperlipidemia Hospital Course and Treatment Imaging Results: Diagnostic Data Chest X-Ray 01/26/19 15:40 IMPRESSION: No acute cardiopulmonary process. Electronically Signed: Carie Godwin MD at 16:08 EDT Tel , Service support , Dr. Moser- Cardiology Operations: None Procedures: 2-D Echocardiogram, Stress test Summary of Care Provided: The patient is a 48 year old M admitted 01/26/2019 due to chest pain. 1. Chest pain, RBBB-no prior EKG for comparison. No ST-T changes. Chest x-ray without acute process. Troponin negative x3. ESR normal. D-dimer negative. Echocardiogram with EF 65%, mild mitral valve insufficiency, mild tricuspid valve insufficiency, RVSP estimated to be 35 mmHg. Stress echo completed and showed no evidence of ischemia. ACS ruled out. Suspect symptoms are related to anxiety/stress as he reports he has had significant work stress recently. He requests to be written off of work the rest of the week. Follow up with PCP within 1 Week. Recommend sleep study as outpatient to evaluate for PATSY. 2. Elevated creatinine-unknown baseline. Suspect secondary to dehydration. Resolved with IV fluids. 3. Lumbar spine osteoarthritis 4. Chewing tobacco use- advised cessation. 5. Hyperlipidemia-mildly elevated LDL. Cardiology recommending initiating statin, Zocor 20 mg p.o. nightly and repeating lipid panel in 6 weeks. General: Alert, Oriented x3, Cooperative HEENT: Atraumatic, PERRLA, EOMI, Normocephalic Neck: Supple, No JVD, Negative Carotid Bruits Lungs: Clear to auscultation, Normal air movement Cardiovascular: Regular rate, Regular Rhythm, Normal S1, Normal S2, No murmurs Abdomen: Bowel Sounds Present, Soft, Non Tender, Non-Distended Extremities: No clubbing, No cyanosis, No edema, Capillary Refill Less than 3 Seconds Skin: No rashes, No breakdown Musculoskeletal: No Tenderness to Palpation of Joints or Extremities Neurological: Cranial nerves II-XII grossly intact, Neuro grossly intact Psych/Mental Status: Normal Affect, Appropriate Patient seen and examined prior to discharge. Physical assessment as noted above. Patient is stable for discharge with follow up recommendations as noted above. This patient was seen by [facility] under the supervision of Dr. Judge. - Physical Exam Vital Signs Temp Pulse Resp BP Pulse Ox 98.2 F 75 17 139/86 H 95 01/28/19 09:53 01/28/19 09:53 01/28/19 09:53 01/28/19 09:53 01/28/19 09:53 Oxygen Flow Rate (L/min) 2 Oxygen Delivery Method Room Air Weight: 283 lb 11.759 oz Body Mass Index (BMI) 38.5 Finger Stick Blood Glucose 113 Intake and Output for Last 24 Hours 01/26/19 01/27/19 01/28/19 23:59 23:59 23:59 Intake Total 480 / 480 1760 / 1760 240 / 240 Balance 480 / 480 1760 / 1760 240 / 240 Laboratory Tests Past 24 Hrs 01/28/19 01/28/19 01/28/19 05:05 05:05 05:05 WBC 3.8 L RBC 4.68 Hgb 14.6 Hct 42.1 MCV 90.0 MCH 31.2 MCHC 34.7 RDW 12.5 RDW Differential 40.8 Plt Count 139 L MPV 11.1 PT 13.3 INR 1.0 APTT 28.5 D-Dimer Quant (PE/DVT) Sodium 143 Potassium 4.3 Chloride 109 H Carbon Dioxide 28.0 Anion Gap 6 BUN 14 Creatinine 1.21 Estim Creat Clear Calc 81.06 Est GFR (MDRD) Af Amer 82 Est GFR (MDRD) Non-Af 68 BUN/Creatinine Ratio 11.6 Glucose 96 Calcium 8.5 01/28/19 05:05 WBC RBC Hgb Hct MCV MCH MCHC RDW RDW Differential Plt Count MPV PT INR APTT D-Dimer Quant (PE/DVT) < 0.27 L Sodium Potassium Chloride Carbon Dioxide Anion Gap BUN Creatinine Estim Creat Clear Calc Est GFR (MDRD) Af Amer Est GFR (MDRD) Non-Af BUN/Creatinine Ratio Glucose Calcium Discharge Diet: Low fat/ Low Cholesterol, 1800 Calorie Control Diet Discharge Activity: Return to Normal Activity Call your doctor if you observe: Shortness of breath, Dizziness, Fainting spells, Chest pain Home Medications: Medications to take at Discharge Simvastatin [Zocor] 20 mg PO QHS #30 tablet 01/28/19 Following Prescrptions Were Given to Patient: Simvastatin [Zocor] 20 mg PO QHS #30 tablet Primary Care Physician: Bismark Jean MD [Primary Care Provider] - Please Follow Up With: Bismark Jean MD When: Within 1 week, may see VACUUM FILTER OPERATOR/PA Disposition: Home Minutes spent on discharge:: 35 Patient Condition:: Stable Medical Necessity - Tobacco Use Smoking Status: Never smoker Tobacco Use: Chew Meaningful Use Info Meaningful Use Diagnoses (Choose all that apply): None applicable <Vitor Judge - Last Filed: 01/28/19 14:17> Hospital Course and Treatment Summary of Care Provided: The patient is a 48 year old M [] - Physical Exam Vital Signs Temp Pulse Resp BP Pulse Ox 98.2 F 75 17 139/86 H 95 01/28/19 09:53 01/28/19 09:53 01/28/19 09:53 01/28/19 09:53 01/28/19 09:53 Oxygen Flow Rate (L/min) 2 Oxygen Delivery Method Room Air Weight: 283 lb 11.759 oz Body Mass Index (BMI) 38.5 Finger Stick Blood Glucose 113 Intake and Output for Last 24 Hours 01/26/19 01/27/19 01/28/19 23:59 23:59 23:59 Intake Total 480 / 480 1760 / 1760 240 / 240 Balance 480 / 480 1760 / 1760 240 / 240 Laboratory Tests Past 24 Hrs 01/28/19 01/28/19 01/28/19 05:05 05:05 05:05 WBC 3.8 L RBC 4.68 Hgb 14.6 Hct 42.1 MCV 90.0 MCH 31.2 MCHC 34.7 RDW 12.5 RDW Differential 40.8 Plt Count 139 L MPV 11.1 PT 13.3 INR 1.0 APTT 28.5 D-Dimer Quant (PE/DVT) Sodium 143 Potassium 4.3 Chloride 109 H Carbon Dioxide 28.0 Anion Gap 6 BUN 14 Creatinine 1.21 Estim Creat Clear Calc 81.06 Est GFR (MDRD) Af Amer 82 Est GFR (MDRD) Non-Af 68 BUN/Creatinine Ratio 11.6 Glucose 96 Calcium 8.5 01/28/19 05:05 WBC RBC Hgb Hct MCV MCH MCHC RDW RDW Differential Plt Count MPV PT INR APTT D-Dimer Quant (PE/DVT) < 0.27 L Sodium Potassium Chloride Carbon Dioxide Anion Gap BUN Creatinine Estim Creat Clear Calc Est GFR (MDRD) Af Amer Est GFR (MDRD) Non-Af BUN/Creatinine Ratio Glucose Calcium Code Visit Addendum: Dr. Judge I personally examined the patient and reviewed the chart. I agree with the above. 48-year-old male who was in the , presenting with chest pain. Given his presentation and the lack of elevated troponin in the in the normal EKG this is likely related to anxiety and stress. He states that he has been noticing that he has been getting frustrated more easily and becoming angry quicker than normal. He did have a stress echo which was normal with an EF of 65%. Recommended that he follow-up with his primary care physician for possible antianxiety medication as well as therapy. OBSV E&M: 57475 Observation care discharge
--- NOTE | 2019-01-28 11:22 | PHA.DC.MC ---
Pharmacy Service has performed discharge medication reconciliation and counseling for this patient. The patient's discharge medication list was reviewed for discrepancies and discrepancies were resolved. The patient was counseled on the following discharge medications and changes in medications for homegoing were reviewed. 1. SIMVASTATIN The Reason for Use, instructions for use, and potential side effects were reviewed for all new medications. The patient's questions regarding all of their medications were answered. The patient was able to verbally demonstrate an understanding of their discharge medications. Home Medications Simvastatin [Zocor] 20 mg PO QHS #30 tablet 01/28/19
== END 2019-01-28 10:37 | disposition home or self-care (01) ==
LOC: ED 15:53 → PCU 18:04
PROVIDERS: Family Medicine; Nurse Practitioner Family; Admitting Provider Internal Medicine; Emergency Provider Emergency Medicine; Family Provider Family Medicine; PCP Family Medicine; Visit Provider Family Medicine
DX: R07.89 Other chest pain (principal); I45.10 Unspecified right bundle-branch block; R55 Syncope and collapse; F17.220 Nicotine dependence, chewing tobacco, uncomplicated; E66.9 Obesity, unspecified; Z68.38 Body mass index [BMI] 38.0-38.9, adult; Z71.3 Dietary counseling and surveillance; M47.896 Other spondylosis, lumbar region; N19 Unspecified kidney failure; R94.31 Abnormal electrocardiogram [ECG] [EKG]; R06.00 Dyspnea, unspecified; E78.5 Hyperlipidemia, unspecified; G47.33 Obstructive sleep apnea (adult) (pediatric)
CPT/HCPCS: 36415; 71045; 80048; 80061; 82962; 83735; 84484; 85025; 85027; 85379; 85610; 85652; 85730; 93005; 93017; 93306; 93350; 96361; 96372; 96374; 99218; 99285; J7030; Q9957; A4216; C8928; C8929; G0378; J2405

== ENCOUNTER → 2021-09-03 12:42 | Outpatient (CLI) | payer OTHER, SELFPAY ==
--- NOTE | 2021-09-03 12:50 | MRI_ITS ---
STUDY: MRI LEFT ANKLE WITHOUT CONTRAST REASON FOR EXAM: Left ankle pain for 2 months, evaluate anterior tibialis tendon. TECHNIQUE: Standardized fat and water weighted pulse sequences were obtained in all 3 orthogonal planes. COMPARISON: None. FINDINGS: There is mild edema in the anterior and medial subcutis adipose space. There is a very small volume of fluid in the retromalleolar and submalleolar posterior tibialis tendon sheath (T2 axial images 8-11, 17, 18). The posterior tibialis tendon is morphologically normal. Normal flexor digitorum longus tendon. Normal flexor hallucis longus tendon. Normal peroneus longus and brevis tendons. There is tendinosis with thickening of the tibialis anterior tendon and a partial tear of the tibialis anterior tendon (T2 axial image 14; inversion recovery sagittal image 13). Normal extensor hallucis longus tendon. Normal extensor digitorum longus tendons. Normal Achilles tendon and teno-osseous insertion. Normal plantar fascia. There is a bone donor site of the posterior tuberosity of the calcaneus. Normal intrinsic muscles of the rearfoot. Normal distal tibiofibular syndesmotic ligamentous complex. Normal lateral ligamentous complex. Normal subtalar ligaments and sinus tarsi. Normal deltoid ligamentous complexes. Normal plantar calcaneonavicular (spring) ligament. Normal tibiotalar articulation. Normal talar dome. Normal subtalar articulations. There is an os trigonum. Normal talonavicular articulation. Normal calcaneocuboid articulation. Normal navicular-cuneiform articulations. There is postoperative artifact at the first tarsometatarsal articulation. MRI/Lower Ext Joint Only (Routine) IMPRESSION: Partial tear and tendinosis of the tibialis anterior tendon. Very mild posterior tibialis tenosynovitis. Electronically Signed: Kota Reagan MD at 14:23 EST Tel , Service support ,
== END ==
PROVIDERS: PCP Student in an Organized Health Care Education/Training Program; Referring Provider Podiatrist Foot & Ankle Surgery; Visit Provider Podiatrist Foot & Ankle Surgery
DX: M66.372 Spontaneous rupture of flexor tendons, left ankle and foot (principal)
CPT/HCPCS: 73721

== ENCOUNTER 2023-03-05 13:16 | Observation (INO) | payer OTHER, SELFPAY ==
[2023-03-05] VITALS (10 sets, daily range): BP systolic 116–170; BP diastolic 71–100; PULSE 75–90; RESP 14–18; TEMP 36.2–37; O2SAT 91–97; BMI 44.2
--- NOTE | 2023-03-05 13:37 | EDS_ITS ---
HPI HPI - GI History of Present Illness Chief Complaint: Abd Pain Narrative Narrative: 52-year-old male presenting with abdominal pain. He states he had some mid abdominal aching x2 days which she thought was due to working in the yard. He notes that last night he was out to dinner and went to get a steak in [place] and he could not finish his dinner because he was too full. His pain was worse. He had a lot of nausea but no vomiting. He states that now he has pain that is more sharp down in the right lower quadrant. The pain in the right lower quadrant only hurts when he takes a deep breath and becomes sharp. The constant aching in the mid abdomen has been constant since last evening. No fevers but he does feel rundown. No diarrhea or constipation. Patient has no history of abdominal surgeries. PFSH PFSH Medical History no medical history Home Medications simvastatin 20 mg tablet 20 mg PO QHS ##30 01/28/19 [Rx Last Taken 03/04/23] bupropion HCl 300 mg 24 hr tablet, extended release 300 mg PO DAILY . 03/05/23 [History Last Taken 03/04/23] bupropion HCl 75 mg tablet 75 mg PO QHS APPETITE 03/05/23 [History Last Taken 03/04/23] celecoxib 200 mg capsule 200 mg PO DAILY PAIN 03/05/23 [History Last Taken 02/16 04/09] fluoxetine 20 mg capsule 20 mg PO DAILY MOOD 03/05/23 [History Last Taken 03/04/23] fluoxetine 40 mg capsule 40 mg PO DAILY MOOD 03/05/23 [History Last Taken 03/04/23] multivitamin 1 tab PO DAILY SUPPLEMENT 03/05/23 [History Last Taken 03/04/23] Allergy/AdvReac Type Severity Reaction Status Date / Time No Known Allergies Allergy Verified 03/05/23 13:18 Social History Smoking Status: Never smoker ROS ROS ED Constitutional Constitutional ED: Denies chills, fever(s) or sweats Eyes Eyes: Denies blurry vision or change in vision ENT ENT ED: Denies ear pain or sore throat Cardiovascular Cardiovascular: Denies chest pain, palpitations or racing heartbeat Respiratory/Chest Respiratory/Chest: Denies cough, dyspnea or sputum Gastrointestinal Gastrointestinal: Reports abdominal pain and nausea; Denies constipation, diarrhea or vomiting Genitourinary Genitourinary ED: Denies dysuria, hematuria or urinary frequency Musculoskeletal Musculoskeletal: Denies arthralgias, myalgias or neck pain Integumentary Denies abscess, Abrasions or rash Neurologic Neurologic: Denies headache(s), paresthesias or weakness Psychiatric Psychiatric: Denies anxiety, depression, suicidal ideation or suicidal thoughts Endocrine Endocrinology: Denies polydipsia or polyuria EXAM Physical Exam Const Vital Signs: 03/05/23 13:17 03/05/23 14:15 03/05/23 14:34 Temperature 97.8 F 98 F 98 F Temperature Source Temporal Temporal Temporal Pulse Rate 87 82 80 Respiratory Rate 16 16 14 Blood Pressure 170/100 H 156/94 H 133/77 H Blood Pressure Mean 123 114 95 Blood Pressure Source Monitor Blood Pressure Position Semi-Fowlers Pulse Ox 97 96 96 Oxygen Delivery Method Room Air Room Air Room Air Positive well nourished General Appearance ED: NAD; Negative for pallor HEENT Reports moist mucous membranes normocephalic Eyes PERRL and EOMs intact bilaterally Neck no lymphadenopathy Resp normal respiratory effort and clear to auscultation bilaterally Auscultation: Negative for rales, rhonchi or wheezes Cardio regular rate and regular rhythm GI Palpation: tender McBurney's point, guarding RLQ and rebound tenderness present Neuro CN's II-XII intact bilaterally Sensorium / Orientation: alert Motor Exam: strength 5/5 throughout Psych mental status grossly normal and thought process normal Skin General Skin Exam: Negative for jaundice or pallor MDM MDM MDM Narrative Medical decision making narrative: Patient presenting with right lower quadrant abdominal pain. Concern for appendicitis given his symptoms have been going on for a couple of days. He has not had fever but has been having nausea and vomiting. Differential includes diverticulitis, colitis. CBC to assess white blood cell count, hemoglobin, platelets, differential. CMP to assess liver function, renal function, e lectrolytes. Lactic acid will be obtained to make sure there is no ischemic bowel. Lipase will be obtained as well given his upper abdominal pain. Patient was medicated with morphine, Zofran, and given a liter of normal saline. CBC shows a leukocytosis of 11.8. There is slight left shift. Renal function electrolytes within normal limits with exception of a sodium of 132. Lactic acid 1.3. LFTs are normal. Lipase negative. CT of the abdomen pelvis shows acute appendicitis. It does appear to be uncomplicated but there is a lot of inflammation in this area. Discussed with Dr. Burton who is on-call for general surgery. She recommended giving Zosyn and she will take the patient to the OR. Zosyn was given. Patient transferred to the OR in stable condition. Impression: 1. Acute appendicitis 2. Nausea Lab Data Attestation: I reviewed the patient's lab results. Labs: Laboratory Results - last 24 hr 03/05/23 03/05/23 03/05/23 13:50 13:50 13:50 WBC 11.8 H RBC 4.62 Hgb 14.6 Hct 42.5 MCV 92.0 MCH 31.6 MCHC 34.4 RDW Std Deviation 41.2 RDW Coeff of Sam 12.3 Plt Count 159 MPV 10.5 Immature Gran % (Auto) 0.500 Neut % (Auto) 81.6 H Lymph % (Auto) 6.5 L [place] % (Auto) 11.1 H Eos % (Auto) 0.0 Baso % (Auto) 0.3 Absolute Neuts (auto) 9.7 H Absolute Lymphs (auto) 0.77 L Nucleated RBC % 0 Sodium 132 L Potassium 4.2 Chloride 100 Carbon Dioxide 26.0 Anion Gap 6 BUN 11 Creatinine 1.10 Estim Creat Clear Calc 85.24 Est GFR (MDRD) Af Amer 90 Est GFR (MDRD) Non-Af 74 BUN/Creatinine Ratio 10.0 Glucose 114 H Lactic Acid 1.3 Calcium 9.0 Total Bilirubin 0.60 AST 25 ALT 51 Alkaline Phosphatase 67 Total Protein 7.7 Albumin 4.0 Globulin 3.7 Albumin/Globulin Ratio 1.1 Lipase 23 Radiography Diagnostic Testing: Clinical Impression(s) from Imaging Studies Abdomen/Pelvis CT 03/05/23 13:37 IMPRESSION: Pronounced acute appendicitis with extensive inflammatory changes of the surrounding fat. Electronically Signed: Jake Smith MD at 14:51 EDT , ADDENDUM: 03/05/23 1500 IMPRESSION: Pronounced acute appendicitis with extensive inflammatory changes of the surrounding fat. N.B. : The above Results were Read Back by Jake Smith MD to Tan Finch MD, and understanding confirmed on 03/05/2023 14:53:45 (ET). Electronically Signed: Jake Smith MD at 14:51 EDT , Discharge Plan Triage Chief Complaint: Abd Pain ED Provider: Tan Finch Dx/Rx/DC Orders Primary Care Provider: Al Wu
--- NOTE | 2023-03-05 13:37 | CT_ITS ---
We are attempting to reach an attending provider to discuss findings. An addendum with communication details will be sent when the communication is complete. EXAM: CT ABDOMEN AND PELVIS WITH INTRAVENOUS CONTRAST CLINICAL INDICATION: Right lower quadrant abdominal pain. TECHNIQUE: Helically acquired images were obtained of the abdomen and pelvis with intravenous contrast. This CT exam was performed using one or more of the following dose reduction techniques: automated exposure control, adjustment of the mA and/or kV according to patient size, and/or use of iterative reconstruction technique. CONTRAST: IV 100mL Isovue-370 RADIATION DOSE: CTDIvol = 21.94 mGy, DLP = 2090.19 mGy-cm COMPARISON: No relevant prior studies available. FINDINGS: LOWER THORAX: Unremarkable. Lung bases are clear. No cardiomegaly. No significant pericardial effusion. ABDOMEN: LIVER: Mild diffuse fatty infiltration of the liver. GALLBLADDER AND BILE DUCTS: Unremarkable. No calcified gallstones. No gallbladder distention or wall edema. No intra- or extrahepatic biliary ductal dilation. PANCREAS: Unremarkable. No focal cystic or solid mass. SPLEEN: Unremarkable. Normal size without focal cystic or solid mass. ADRENALS: Unremarkable. No nodules. KIDNEYS AND URETERS: Unremarkable. Normal renal size and position. No hydronephrosis. STOMACH AND BOWEL: Unremarkable. No stomach or bowel distention. No focal inflammatory change. PELVIS: APPENDIX: Abnormal thickening of the appendix with moderate amount of inflammatory changes of the surrounding fat consistent with acute appendicitis. BLADDER: Unremarkable. REPRODUCTIVE: Unremarkable as visualized. No mass. ABDOMEN and PELVIS: INTRAPERITONEAL SPACE: Unremarkable. No ascites or other fluid collection. No free air. BONES/JOINTS: Unremarkable. No suspicious lytic or blastic abnormality. 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 SOFT TISSUES: Unremarkable. No discrete abdominal or pelvic wall hernia. VASCULATURE: Unremarkable. Abdominal aorta is non-dilated. LYMPH NODES: Unremarkable. No enlarged lymph nodes. CT/Abdomen/Pelvis W IV Cont ONLY IMPRESSION: Pronounced acute appendicitis with extensive inflammatory changes of the surrounding fat. Electronically Signed: Jake Smith MD at 14:51 EDT ,
[2023-03-05] MEDS: 0.9% Normal Saline 1,000 ML 1000 ML IV (13:51)
[2023-03-05] MEDS: Ondansetron 4 MG/2 ML Vial IV (13:52)
[2023-03-05] MEDS: Morphine 4 MG/ML Syringe IV (13:53)
[2023-03-05 14:03] LABS: Absolute Lymphocyte Count 0.77 X10^3/uL (0.83-4.51); Absolute Neutrophil Count 9.7 X10^3/uL (2.0-7.7); Basophil# 0.03 X10^3/uL; Basophil% 0.3 % (0-1); Hematocrit 42.5 % (40-54); Hemoglobin 14.6 g/dL (13.0-16.5); Lymphocyte # 0.77 X10^3/ul (0.83-4.51); Lymphocyte % 6.5 % (19-41); Mean Corp Hgb Conc 34.4 g/dL (32-36); Mean Corpuscular Hgb 31.6 pg (27.0-32.0); Mean Platelet Vol. 10.5 fl (6.2-12.0); Monocyte# 1.31 X10^3/uL; Monocyte% 11.1 % (0-10); NRBC Flagged by Analyzer 0 % (0-5); Neutrophil # 9.67 X10^3/uL (2.7-7.7); Neutrophil % 81.6 % (47-70); Platelet Count 159 K/mm3 (150-450); RBC Distribution Width CV 12.3 % (11.6-14.6); RBC Distribution Width SD 41.2 fl (35.1-43.9); Red Blood Count 4.62 M/mm3 (4.6-6.2); White Blood Count 11.8 K/mm3 (4.4-11.0)
[2023-03-05 14:21] LABS: ALB/GLOB Ratio 1.1 RATIO (0.9-2.4); AST(SGOT) 25 U/L (15-37); Alanine Aminotransfer ALT/SGPT 51 U/L (16-61); Alkaline Phosphatase 67 U/L (45-117); Anion Gap 6 (5-15); BUN 11 mg/dL (7-18); Chloride 100 mmol/L (98-107); EST Glomerular Filtration Rate 74 mL/min (>60); Est Glom Filt Rate - Afr Amer 90 mL/min (>60); Estimated Creatinine Clearance 85.24 ml/min; Globulin 3.7 g/dL (2.2-4.2); Glucose 114 mg/dL (74-106); Lipase 23 U/L (13-75); Potassium 4.2 mmol/L (3.5-5.1); Protein, Total 7.7 g/dL (6.4-8.2); Sodium Level 132 mmol/L (136-145)
--- NOTE | 2023-03-05 14:24 | PCM.HP.STD ---
HPI - General General Date of Admission: 03/05/23 HPI Narrative JEAN MIRAMONTES, is a 52 M who presents with abdominal pain that is moved to the right lower quadrant starting last night. Patient last ate last night. Patient did have some nausea denies any vomiting. Patient with blood count 11.8. Patient's denies any previous abdominal surgeries. CT abdomen pelvis was consistent with acute appendicitis. Patient was given Zosyn in the ER x1. PFSH Medical History no medical history Home Medications simvastatin 20 mg tablet 20 mg PO QHS ##30 01/28/19 [Rx Last Taken 03/04/23] bupropion HCl 300 mg 24 hr tablet, extended release 300 mg PO DAILY . 03/05/23 [History Last Taken 03/04/23] bupropion HCl 75 mg tablet 75 mg PO QHS APPETITE 03/05/23 [History Last Taken 03/04/23] celecoxib 200 mg capsule 200 mg PO DAILY PAIN 03/05/23 [History Last Taken 03/04/23] fluoxetine 20 mg capsule 20 mg PO DAILY MOOD 03/05/23 [History Last Taken 03/04/23] fluoxetine 40 mg capsule 40 mg PO DAILY MOOD 03/05/23 [History Last Taken 03/04/23] multivitamin 1 tab PO DAILY SUPPLEMENT 03/05/23 [History Last Taken 03/04/23] Allergy/AdvReac Type Severity Reaction Status Date / Time No Known Allergies Allergy Verified 03/05/23 13:18 Social History Smoking Status: Never smoker Vital Signs Vital Signs Vital Signs: 03/05/23 13:17 03/05/23 14:15 Temperature 97.8 F 98 F Temperature Source Temporal Temporal Pulse Rate 87 82 Respiratory Rate 16 16 Blood Pressure 170/100 H 156/94 H Blood Pressure Mean 123 114 Blood Pressure Source Monitor Blood Pressure Position Semi-Fowlers Pulse Ox 97 96 Oxygen Delivery Method Room Air Room Air Weight Weight: 326 lb 2 oz Body Mass Index (BMI) 44.2 Physical Exam Const alert, oriented x3 and no apparent distress HEENT normocephalic and head/scalp atraumatic Resp normal respiratory effort Cardio regular rate GI soft to palpation; Negative for non-distended Palpation: tender RLQ; Negative for guarding Extremity no clubbing, cyanosis or edema Neuro CN's II-XII intact bilaterally Psych mental status grossly normal Results Lab / Micro Data Result Diagrams: 03/05/23 13:50 03/05/23 13:50 Labs: Laboratory Results - last 24 hr 03/05/23 13:50: WBC 11.8 H, RBC 4.62, Hgb 14.6, Hct 42.5, MCV 92.0, MCH 31.6, MCHC 34.4, RDW Std Deviation 41.2, RDW Coeff of Sam 12.3, Plt Count 159, MPV 10.5, Immature Gran % (Auto) 0.500, Neut % (Auto) 81.6 H, Lymph % (Auto) 6.5 L, [place] % (Auto) 11.1 H, Eos % (Auto) 0.0, Baso % (Auto) 0.3, Absolute Neuts (auto) 9.7 H, Absolute Lymphs (auto) 0.77 L, Nucleated RBC % 0 03/05/23 13:50: Sodium 132 L, Potassium 4.2, Chloride 100, Carbon Dioxide 26.0, Anion Gap 6, BUN 11, Creatinine 1.10, Estim Creat Clear Calc 85.24, Est GFR (MDRD) Af Amer 90, Est GFR (MDRD) Non-Af 74, BUN/Creatinine Ratio 10.0, Glucose 114 H, Calcium 9.0, Total Bilirubin 0.60, AST 25, ALT 51, Alkaline Phosphatase 67, Total Protein 7.7, Albumin 4.0, Globulin 3.7, Albumin/Globulin Ratio 1.1, Lipase 23 Assessment & Plan Assessment/Plan (1) Acute appendicitis: PLAN: Plan 1. Discussed procedure laparoscopic appendectomy, possible open along with the risk but not limited to bleeding, infection/abscess, injury to another organ (small bowel, colon, etc.), adhesion, hernia at incision sites, and anesthesia. Patient and his had no further questions this time. Serina Burton M.D. Pager: [phone] [facility] [address] [place] [address], [address] [place] [id number] Office: [phone]
[2023-03-05 15:00] LABS: Lactic Acid 1.3 mmol/L (0.4-1.9)
--- NOTE | 2023-03-05 15:20 | APP_PTH ---
PATIENT: JEAN MIRAMONTES LOC: MS3 U#:[id number] AGE/SX: 52/M ROOM: [facility] RE03/05/[address]: Dr. Serina Burton MD : 1970 BED: 1 DIS: 03/06/2023 SPEC #: [id number] RECD: 03/06/23 08:14 STATUS: ILEANA REQ #: [id number] PATY: 03/05/23 15:[address]: Serina Burton DEPT: SURGICAL PATHOLOGY RECD BY: Emily Miner ENTERED: 03/06/23 08:47 SP TYPE: APPENDIX OTHR DR: Dr. Al Wu, DO Tissues: Appendix, NOS Procedures: Surgery Specimen Level III HEADER OPERATION: Laparoscopic appendectomy PRE-OP DIAGNOSIS: Acute appendicitis TISSUE SUBMITTED: Appendix MICROSCOPIC DIAGNOSIS Appendix, appendectomy: Acute appendicitis. Acute serositis. AM:saroj 03/07/2023 MICROSCOPIC DESCRIPTION Slides are reviewed. GROSS DESCRIPTION Received in fixative is one container labeled with the patient's name and designated appendix. The specimen consists of an appendix measuring 8.0 cm in length and 1.5 cm in average diameter. No gross perforations are evident. The serosal aspect is briseno-ledesma in color. Serial sections reveal a patent lumen. No mass lesion is identified. Vehicle Trimmer sections are submitted in one cassette. / AM:saroj 03/06/2023 TC:2 CPT: [id number]
[2023-03-05] MEDS: Bupivacaine Mpf 0.5% 30 ML VIAL (16:58)
--- NOTE | 2023-03-05 17:09 | OP.PCM_ITS ---
Report of Operation Date of Procedure: 03/05/23 Pre-Operative Diagnosis: Acute appendicitis Post-Operative Diagnosis: Acute necrotic appendicitis Surgery/Procedure Performed:: Laparoscopic appendectomy Surgeon: Serina Burton Type of Anesthesia: General/Supplemental Anesthesiologist: Ted Giron Special Medications: Zosyn 3.35 g IV x1 in the ER for acute appendicitis Specimen's removed: Appendix with base separate Estimated Blood Loss (mL): 10 cc Description of Procedure: Indications: 52-year-old [fe]male presented to the ER with new right lower quadrant pain last night. On workup he was found to have acute appendicitis on CT and a leukocytosis of 11.8. Patient was started on antibiotics in the ER for acute appendicitis-Zosyn IV x1 Description of the procedure: The patient was placed on operating table in supine position. General anesthesia was induced. A timeout was completed v erifying correct patient, procedure, position and special equipment prior to beginning procedure. Abdomen was prepped and draped in usual sterile fashion. Incision was made in the natural skin line above the umbilicus with a 15 blade scalpel. The fascia was elevated and incised. Entry into the peritoneum was confirmed visually and no bowel was noted in the vicinity of the incision. The Crabtree trocar was placed under direct vision. Abdomen insufflated with a pressure of 12-15 mmHg. Patient tolerated insertion well. The scope was inserted and the abdomen inspected. No injuries from initial trocar placement were noted. Minimal amount of fluid was seen in the right lower quadrant. An direct visualization 2 -5 mm trocars were placed one above the symphysis pubis and below the hairline and one in the left lower quadrant lateral to the rectus muscle. Care is taken to avoid injury to the bladder and inferior epigastric vessels. The table was placed in Trendelenburg position wit h the right side elevated. The appendix was grasped with atraumatic grasper and elevated. It was noted to be necrotic/inflamed. Patient dense adhesions at the base of the appendix. A window was developed in the mesoappendix at what was thought to be the point between the base of the appendix and the cecum. An endoscopic 45 mm linear cutting stapler blue load was then used to divide and staple the base of the appendix. Additional appendiceal stump was dissected and this was again stapled With the endoscopic 45 mm linear cutting stapler. Enseal was used to divide the mesoappendix when trying to locate the base of the appendix. The appendix and base were withdrawn into the Crabtree trocar after being placed endoscopically retrieval bag. Appendix and base were sent to pathology. The appendiceal stump was then irrigated and hemostasis was assured. Fluid was suctioned no other pathology was identified. Secondary trochars were removed under direct visualization. No bleeding was n oted trocar sites. The laparoscope withdrawn and the umbilical trocar removed. The abdomen was allowed to collapse. Local anesthesia of 20 mL of 0.5% Marcaine was used at the incision sites. The umbilical trocar site was closed with the fuogog-yo-gkeee 0 Vicryl suture. The skin was closed using sutures of 4-0 Monocryl and Steri-Strips. The patient was extubated. The patient tolerated the procedure well and was taken to the postanesthesia care unit in satisfactory condition. Complications none
--- NOTE | 2023-03-05 18:30 | NURSING ---
.9 ns @120 hung not verified by pharmacy yet, verified w/ tati [place] d/t LR bag from PACU empty
--- NOTE | 2023-03-05 18:32 | NURSING ---
pt came from [facility] w/ BLE SCD's on
[2023-03-05] MEDS: 0.9% Normal Saline 1,000 ML 120 ML IV (19:20)
[2023-03-05] MEDS: Atorvastatin Calcium 10 MG Tablet PO (23:42)
[2023-03-05] MEDS: buPROPion 75 MG Tablet PO (23:56)
[2023-03-05] MEDS: Acetaminophen 325 MG Tablet 650 MG PO (23:56)
[2023-03-06] MEDS: 0.9% Normal Saline 1,000 ML 120 ML IV (01:55)
[2023-03-06 02:05] VITALS: BP 120/80; PULSE 71; RESP 18; O2SAT 95
[2023-03-06 05:50] VITALS: BP 121/71; PULSE 66; RESP 18; TEMP 36.8; O2SAT 96
[2023-03-06 05:57] VITALS: O2SAT 93
[2023-03-06 07:01] VITALS: O2SAT 94
--- NOTE | 2023-03-06 07:55 | PCM.PN.SRG ---
Subjective Subjective Patient evaluated resting comfortably in bed. He denies any abdominal pain/discomfort. He denies nausea, vomiting, fever. He has had positive flatus. Negative BM. He has been urinating well. Objective Data Objective Data Vital Signs: Vital Signs Temp Pulse Resp BP Pulse Ox O2 Del Method O2 Flow Rate 98.2 F 66 18 121/71 H 94 Room Air 2 03/06/23 05:50 03/06/23 05:50 03/06/23 05:50 03/06/23 05:50 03/06/23 07:01 03/06/23 07:01 03/06/23 05:50 Oxygen Flow Rate (L/min) 2 Oxygen Delivery Method Room Air Weight: 326 lb 2 oz Body Mass Index (BMI) 44.2 Intake & Output: Intake and Output for Last 24 Hours 03/04/23 03/05/23 03/06/23 23:59 23:59 23:59 Intake Total 1001.25 / 1251.25 1440 / 1440 Output Total 1600 / 1600 Balance 1001.25 / 751.25 -160 / -160 Lab / Micro Data Result Diagrams: 03/05/23 13:50 03/05/23 13:50 Labs: Laboratory Results - last 24 hr 03/05/23 13:50: WBC 11.8 H, RBC 4.62, Hgb 14.6, Hct 42.5, MCV 92.0, MCH 31.6, MCHC 34.4, RDW Std Deviation 41.2, RDW Coeff of Sam 12.3, Plt Count 159, MPV 10.5, Immature Gran % (Auto) 0.500, Neut % (Auto) 81.6 H, Lymph % (Auto) 6.5 L, [place] % (Auto) 11.1 H, Eos % (Auto) 0.0, Baso % (Auto) 0.3, Absolute Neuts (auto) 9.7 H, Absolute Lymphs (auto) 0.77 L, Nucleated RBC % 0 03/05/23 13:50: Sodium 132 L, Potassium 4.2, Chloride 100, Carbon Dioxide 26.0, Anion Gap 6, BUN 11, Creatinine 1.10, Estim Creat Clear Calc 85.24, Est GFR (MDRD) Af Amer 90, Est GFR (MDRD) Non-Af 74, BUN/Creatinine Ratio 10.0, Glucose 114 H, Calcium 9.0, Total Bilirubin 0.60, AST 25, ALT 51, Alkaline Phosphatase 67, Total Protein 7.7, Albumin 4.0, Globulin 3.7, Albumin/Globulin Ratio 1.1, Lipase 23 03/05/23 13:50: Lactic Acid 1.3 Radiography Diagnostic Testing: Radiology Impression Abdomen/Pelvis CT 03/05/23 13:37 IMPRESSION: Pronounced acute appendicitis with extensive inflammatory changes of the surrounding fat. Electronically Signed: Jake Smith MD at 14:51 EDT , ADDENDUM: 03/05/23 1500 IMPRESSION: Pronounced acute appendicitis with extensive inflammatory changes of the surrounding fat. N.B. : The above Results were Read Back by Jake Smith MD to Tan Finch MD, and understanding confirmed on 03/05/2023 14:53:45 (ET). Electronically Signed: Jake Smith MD at 14:51 EDT , Physical Exam GI soft to palpation, non-tender and non-distended Inspection: central obesity Auscultation: hypoactive bowel sounds Assessment & Plan Assessment/Plan (1) Acute appendicitis: PLAN: Patient progressing very well Patient is ready to discharged today Charges/Coding Visit Charges Inpatient E&M: 73869 Subs Hosp L1 (no charge; post-op)
[2023-03-06] MEDS: FLUoxetine 20 MG Capsule PO (09:33)
[2023-03-06] MEDS: Fluoxetine HCl 40 MG CAPSULE PO (09:33)
[2023-03-06 09:35] VITALS: BP 140/74; PULSE 64; RESP 18; TEMP 36.9; O2SAT 93
--- NOTE | 2023-03-06 11:23 | DCINST_ITS ---
Discharge Instructions Diet Discharge Diet: Light diet - advance as tolerated Activity Discharge Activity: May Not Drive (3 days after discharge) and May Shower Lifting Restrictions: 15 pounds for 2 weeks Dressing / Incision Call your doctor if your incision/area has: Continuous Slow Oozing, Sudden Increased Bleeding, Increased Pain/ Swelling, Increased Redness, Foul Smelling Discharge and Swelling at the incision site Call your doctor if you observe: Fever of 101 or Higher Follow Up Care Please Follow Up With: Serina Burton MD When: Please call our office at [phone] to schedule a 2 week post-operative appointment Test Results: Test results from this visit will be discussed in further detail at your follow- up appointment, if applicable. Discharge Plan Admission Admit Date/Time: 03/05/23 15:13 Primary Reason for Your Visit: Acute appendicitis Attending Provider: Serina Burton Primary Care Provider: Al Wu Instructions Additional Instructions / Restrictions: Recommend taking Tylenol as needed for discomfort Recommend no lifting greater than 15 pounds for 2 weeks Advance diet as tolerated over the next 2-3 days You may experience constipation, you may need a laxative to assist with bowel movements. We recommend taking Miralax or other laxative to assist with your first bowel movement. Discharge Orders/Prescriptions Prescriptions: Continued simvastatin 20 MG tablet 20 mg PO QHS Qty: 30 0RF multivitamin Tablet 1 tab PO DAILY celecoxib 200 mg capsule 200 mg PO DAILY fluoxetine 40 mg capsule 40 mg PO DAILY Label Comments: take 1 capsule by mouth once daily bupropion HCl 75 mg tablet 75 mg PO QHS fluoxetine 20 mg capsule 20 mg PO DAILY bupropion HCl 300 mg tablet extended release 24 hr 300 mg PO DAILY Referrals / Follow Up: Al Wu DO [Primary Care Provider] - Disposition Disposition (needs filled in before D/C Order can be placed): Home, Self Care
--- NOTE | 2023-03-06 11:46 | PHA.DC.MR ---
Pharmacy Service has performed discharge medication reconciliation for this patient. The patient's discharge medication list was reviewed for discrepancies and discrepancies were resolved. Home Medications simvastatin 20 mg tablet 20 mg PO QHS ##30 01/28/19 bupropion HCl 300 mg 24 hr tablet, extended release 300 mg PO DAILY . 03/05/23 bupropion HCl 75 mg tablet 75 mg PO QHS APPETITE 03/05/23 celecoxib 200 mg capsule 200 mg PO DAILY PAIN 03/05/23 fluoxetine 20 mg capsule 20 mg PO DAILY MOOD 03/05/23 fluoxetine 40 mg capsule 40 mg PO DAILY MOOD 03/05/23 multivitamin 1 tab PO DAILY SUPPLEMENT 03/05/23
[2023-03-06 11:55] VITALS: BP 140/74; PULSE 64; RESP 18; TEMP 36.9; O2SAT 93
== END 2023-03-06 12:15 | disposition home or self-care (01) ==
LOC: ED 14:20 → MS3 14:58
PROVIDERS: Admitting Provider Surgery; Emergency Provider Student in an Organized Health Care Education/Training Program; PCP Student in an Organized Health Care Education/Training Program; Visit Provider Surgery
PROC: 0DTJ4ZZ Resection of Appendix, Percutaneous Endoscopic Approach (ICD-10-PCS; CPT 44970; principal; 2023-03-05 15:00)
DX: K35.80 Unspecified acute appendicitis (principal); F17.220 Nicotine dependence, chewing tobacco, uncomplicated
CPT/HCPCS: 44970; 00840; 74177; 80053; 83605; 83690; 85025; 88304; 94668; 96361; 96365; 96366; 96375; 99221; 99252; 99284; J7030; J7050; Q9967; C1760; G0378; G0463; J2405

== ENCOUNTER → 2023-12-05 | Outpatient (CLI) | payer OTHER, SELFPAY | END | disposition home or self-care (01) | LOC: PSN 09:49 | PROVIDERS: PCP Student in an Organized Health Care Education/Training Program; Referring Provider Chiropractor; Visit Provider Chiropractor | DX: R91.8 Other nonspecific abnormal finding of lung field (principal) | CPT/HCPCS: 94060; 94726; 94729 ==

== ENCOUNTER → 2025-04-14 | Outpatient (CLI) | payer OTHER, SELFPAY ==
--- NOTE | 2025-04-14 10:15 | RAD_ITS ---
PROCEDURE: HAND 2 VIEWS 04/14/2025 REASON FOR EXAM: OA Right hand pain. TECHNIQUE: HAND 2 VIEWS COMPARISON: None FINDINGS: Bones: Unremarkable Joints: Normal alignment. Soft tissues: Soft tissues are unremarkable. Other: RAD/Hand 2 Views IMPRESSION: NEGATIVE HAND SERIES Reading Location: [id number]
--- NOTE | 2025-04-14 10:15 | RAD_ITS ---
PROCEDURE: KNEE 3 VIEWS 04/14/2025 REASON FOR EXAM: OSTEOATHRITIS TECHNIQUE: KNEE 3 VIEWS COMPARISON: None FINDINGS: Bones: Unremarkable Joints: Quite compartmental joint space narrowing. Chondrocalcinosis of the medial and lateral menisci. Effusion: Minimal joint effusion. Soft tissues: Unremarkable Other: RAD/Knee 3 Views IMPRESSION: DEGENERATIVE OSTEOARTHROSIS. NO ACUTE FINDINGS. Chondrocalcinosis of the medial and lateral menisci. Reading Location: [id number]
--- NOTE | 2025-04-14 10:15 | RAD_ITS ---
PROCEDURE: HAND 2 VIEWS 04/14/2025 REASON FOR EXAM: OSTEOARTHRITIS TECHNIQUE: HAND 2 VIEWS COMPARISON: None FINDINGS: Bones: Unremarkable Joints: Normal alignment. Soft tissues: Soft tissues are unremarkable. Other: RAD/Hand 2 Views IMPRESSION: NEGATIVE HAND SERIES Reading Location: [id number]
--- NOTE | 2025-04-14 10:15 | RAD_ITS ---
PROCEDURE: HIPS B/L MIN 2 VIEWS W/ PELVIS 04/14/2025 REASON FOR EXAM: OSTEOARTHRITIS TECHNIQUE: Five view bilateral hips to include the AP pelvis. COMPARISON: None RAD/Hips B/L min 2 views w/ Pelvis IMPRESSION: Degenerative changes are seen of the visualized lower lumbar spine. Mild sacro iliac joint degenerative changes noted. Moderate right hip joint degenerative changes are noted, with associated medial and superior partial joint narrowing. No evidence of femoral head osteonecrosis. A left total hip prosthesis is in place, without evidence of loosening or metal lic fracture. Satisfactory alignment is seen. No fracture or dislocation is evident. Reading Location: [place] [id number]
--- NOTE | 2025-04-14 10:15 | RAD_ITS ---
PROCEDURE: SHOULDER MIN 2 VIEWS 04/14/2025 REASON FOR EXAM: SHOULDER OSTEOARTHRITIS TECHNIQUE: SHOULDER MIN 2 VIEWS COMPARISON: none FINDINGS: No acute fracture or dislocations. Minimal degenerative changes of the right shoulder. No large joint effusion. No acute soft tissue abnormalities. No radiographic foreign body. Question 7 mm pulmonary nodule within the right upper lobe; consider CT if there is concern for neoplastic process. RAD/Shoulder min 2 Views IMPRESSION: Minimal degenerative changes of the right shoulder. Question 7 mm pulmonary nodule within the right upper lobe; consider CT if ther e is concern for neoplastic process. Reading Location: [id number]
--- NOTE | 2025-04-14 10:15 | RAD_ITS ---
PROCEDURE: LUMBAR SPINE 2 OR 3 VIEWS 04/14/2025 REASON FOR EXAM: LOWER BACK ARTHRITIS TECHNIQUE: LUMBAR SPINE 2 OR 3 VIEWS COMPARISON: No FINDINGS: Mild S shaped scoliosis. Facet arthritis, most pronounced L3 through S1. Mild disc space narrowing, L1-L2, endplate sclerosis and osteophyte formation. No acute bone or soft tissue pathology. RAD/Lumbar Spine 2 or 3 Views IMPRESSION: Lumbar spine scoliosis and degeneration. [facility]
--- NOTE | 2025-04-14 10:15 | RAD_ITS ---
PROCEDURE: FOOT 2 VIEWS 04/14/2025 REASON FOR EXAM: OSTEOARTHRITIS TECHNIQUE: FOOT 2 VIEWS COMPARISON: None FINDINGS: Bones: Prior fusion of the 1st tarsometatarsal joint. Joints: Degenerative changes of the 1st metatarsophalangeal joint. Soft tissues: Mild soft tissue swelling. Other: RAD/Foot 2 Views IMPRESSION: Status post fusion at the 1st tarsometatarsal joint. Degenerative changes of the 1st metatarsophalangeal joint. Reading Location: [id number]
--- NOTE | 2025-04-14 10:15 | RAD_ITS ---
PROCEDURE: ANKLE 2 VIEWS 04/14/2025 REASON FOR EXAM: LEFT ANKLE OSTEOARTHRITIS TECHNIQUE: ANKLE 2 VIEWS COMPARISON: none RAD/Ankle 2 Views IMPRESSION: Intercarpal and metacarpal hardwares are noted. No acute fractures or dislocat ions. Minimal degenerative changes of the ankle. Minimal ankle effusion. No acute soft tissue abnormalities. No radiographic foreign body. Reading Location: [id number]
== END | disposition home or self-care (01) ==
PROVIDERS: PCP Student in an Organized Health Care Education/Training Program; Referring Provider Chiropractor; Visit Provider Chiropractor
DX: R91.8 Other nonspecific abnormal finding of lung field (principal); M46.96 Unspecified inflammatory spondylopathy, lumbar region; M19.072 Primary osteoarthritis, left ankle and foot; M19.042 Primary osteoarthritis, left hand; M19.041 Primary osteoarthritis, right hand; M17.11 Unilateral primary osteoarthritis, right knee; M19.011 Primary osteoarthritis, right shoulder; M16.0 Bilateral primary osteoarthritis of hip
CPT/HCPCS: 72100; 73030; 73120; 73521; 73562; 73600; 73620; 94060; 94726; 94729